=== PATIENT | male | born 1955 | race Caucasian/White ===

== ENCOUNTER → 2017-08-25 | Outpatient (REF) | payer OTHER ==
[2017-08-25 14:35] LABS: FERRITIN 132 NG/ML (26-388); IRON (FE) 95 UG/DL (65-175); PERCENT SATURATION 37.1 % (19.7-50.0); TOTAL IRON BINDING CAPACITY 256 UG/DL (250-450)
== END ==
LOC: M LAB REF 13:50
DX: N18.9 Chronic kidney disease, unspecified (principal); D50.9 Iron deficiency anemia, unspecified; D63.1 Anemia in chronic kidney disease

== ENCOUNTER → 2017-09-23 | Outpatient (CLI) | payer OTHER | LOC: M RAD 09:20 | DX: Z01.818 Encounter for other preprocedural examination (principal); N18.6 End stage renal disease | CPT/HCPCS: G0365 ==

== ENCOUNTER → 2018-12-21 | Outpatient (REF) | payer BC, OTHER ==
[~2018-12-21] MED LIST: BASA100I SC; CEPH500T PO; D 1010004 PO; FERR325T3 PO; FURO20TA2 PO; FURO40TA2 PO; HYDR10TAB PO; METHY25TA PO; NOVOINJ3 SC; SPIR1TAB34 PO
[2018-12-21 18:00] LABS: PERCENT SATURATION 45.6 % (19.7-50.0)
== END ==
LOC: M LAB REF 17:06
PROVIDERS: ATTEND Internal Medicine Nephrology
DX: D50.9 Iron deficiency anemia, unspecified (principal)

== ENCOUNTER → 2020-07-31 | Outpatient (REF) | payer BC ==
[2020-07-31 18:43] LABS: PERCENT SATURATION 33.7 % (19.7-50.0)
== END ==
LOC: M LAB REF 17:17
PROVIDERS: ATTEND Internal Medicine Nephrology
DX: N18.9 Chronic kidney disease, unspecified (principal); D50.9 Iron deficiency anemia, unspecified; D63.1 Anemia in chronic kidney disease

== ENCOUNTER → 2020-09-04 | Outpatient (REF) | payer BC | LOC: M LAB REF 17:03 | PROVIDERS: ATTEND Internal Medicine Nephrology | DX: E83.42 Hypomagnesemia (principal) ==

== ENCOUNTER → 2020-12-08 | Outpatient (REF) | payer BC | LOC: M LAB REF 17:02 | PROVIDERS: ATTEND Internal Medicine Nephrology | DX: E83.42 Hypomagnesemia (principal) ==

== ENCOUNTER → 2023-07-20 | Outpatient (REF) | payer BC ==
[~2023-07-20] MED LIST changes: +HYDR-161 PO; -HYDR10TAB PO
== END ==
LOC: M LAB REF 17:44
PROVIDERS: ATTEND Internal Medicine Nephrology
DX: E11.22 Type 2 diabetes mellitus with diabetic chronic kidney disease (principal); N18.9 Chronic kidney disease, unspecified; D63.1 Anemia in chronic kidney disease

== ENCOUNTER → 2023-10-10 | Outpatient (REF) | payer BC, MEDICARE ==
[2023-10-10 18:16] LABS: PERCENT SATURATION 31.5 % (19.7-50.0)
== END ==
LOC: M LAB REF 17:12
PROVIDERS: ATTEND Internal Medicine Nephrology
DX: D50.9 Iron deficiency anemia, unspecified (principal)